=== PATIENT | female | born 2000 | race Caucasian/White ===

== ENCOUNTER 2024-06-02 23:46 | Emergency (ER) | payer BC ==
[~2024-06-02] VITALS: Ht 162.6 cm; Wt 56.8 kg
[~2024-06-02 23:46] MED LIST: NORCO 325 MG-51 TAB PO
[2024-06-02 23:52] VITALS: TEMP 97.8
[2024-06-03] MEDS ORDERED: Acetaminophen 325 MG TAB PO ONE (00:15)
[2024-06-03] MEDS ORDERED: Ibuprofen 600 MG TAB PO ONE (00:15)
[2024-06-03 00:59] VITALS: BP 124/78; PULSE 85
== END 2024-06-03 00:59 | disposition home or self-care (01) ==
LOC: COL.ER 23:46
DX: M25.512 Pain in left shoulder (principal); W01.0XXA Fall on same level from slipping, tripping and stumbling without subsequent striking against object, initial encounter